=== PATIENT | male | born 1980 | race Caucasian/White ===

== ENCOUNTER 2019-04-13 13:47 | Emergency (ER) | payer OTHER ==
[2019-04-13 14:58] LABS: Troponin I Less than 0.010 ng/mL (< 0.028)
== END 2019-04-13 15:32 | disposition home or self-care (01) ==
LOC: ERS 13:47
DX: R07.89 Other chest pain (principal); F17.210 Nicotine dependence, cigarettes, uncomplicated; Z71.6 Tobacco abuse counseling
CPT/HCPCS: 36415; 93005; 99406